=== PATIENT | female | born 1940 | race Caucasian/White ===

== ENCOUNTER → 2017-12-21 | Outpatient (CLI) | payer OTHER ==
[~2017-12-21] MED LIST: AMARYL2 MG PO; COZAAR 25 MG TA25 M1 PO; FLAGYL500 MG PO; LEVOTHYROXIN0.088 MG PO; LIPITOR10 MG PO; MEDROLDOSEPACK PO; METFORMIN HCL500 MG PO
== END ==
LOC: M.RAD 14:54
DX: M19.071 Primary osteoarthritis, right ankle and foot (principal); G89.11 Acute pain due to trauma; M81.0 Age-related osteoporosis without current pathological fracture

== ENCOUNTER → 2018-05-15 | Outpatient (CLI) | payer OTHER | LOC: M.RAD 09:01 | DX: M19.011 Primary osteoarthritis, right shoulder (principal); M50.322 Other cervical disc degeneration at C5-C6 level; M48.02 Spinal stenosis, cervical region; I12.9 Hypertensive chronic kidney disease with stage 1 through stage 4 chronic kidney disease, or unspecified chronic kidney disease; E11.22 Type 2 diabetes mellitus with diabetic chronic kidney disease; N18.2 Chronic kidney disease, stage 2 (mild); E03.9 Hypothyroidism, unspecified; M79.621 Pain in right upper arm ==

== ENCOUNTER → 2018-08-29 | Outpatient (CLI) | payer OTHER | LOC: M.MRI 13:13 | DX: M75.101 Unspecified rotator cuff tear or rupture of right shoulder, not specified as traumatic (principal); M19.011 Primary osteoarthritis, right shoulder; E11.22 Type 2 diabetes mellitus with diabetic chronic kidney disease; I12.9 Hypertensive chronic kidney disease with stage 1 through stage 4 chronic kidney disease, or unspecified chronic kidney disease; N18.2 Chronic kidney disease, stage 2 (mild); E78.6 Lipoprotein deficiency; D51.9 Vitamin B12 deficiency anemia, unspecified ==